=== PATIENT | female | born 1985 | race Caucasian/White ===

== ENCOUNTER 2022-07-07 08:23 | Observation (INO) ==
[2022-07-07] MEDS ORDERED: SODIUM CHLORIDE 0.9% 1000ML 1,000 ML IV STA (08:32)
[2022-07-07] MEDS ORDERED: ONDANSETRON INJ 2 MG/ML 2 ML VIAL IV STA (08:32)
[2022-07-07] MEDS ORDERED: KETOROLAC TROMETHAMINE 15 MG/ML VIAL IV STA (08:32)
--- NOTE | 2022-07-07 08:57 | Emergency Department Note ---
Impression & Plan RLQ abdominal pain, Vomiting and diarrhea, Appendicitis ED Provider Note NAME: FELY DEUTSCH AGE: 37 SEX: F : 1985 ARRIVES VIA: Walk-In INFORMANT: [Patient] ED PROVIDER(S): [Pradeep Caballero MD] CHIEF COMPLAINT: Abdominal pain HISTORY OF PRESENT ILLNESS: The patient is a 37-year-old female who presents to the ER with symptoms that started 2 days ago. She has had nausea, fatigue, body aches and sweats. She has noticed some right-sided abdominal pain. This morning, she began vomiting with diarrhea. The pain on the right side has increased. She has not had blood in the vomit or diarrhea. The patient's son was sick with vomiting diarrhea last week. The patient does not believe she has eaten any food that may have caused her symptoms. There has been no cough or congestion, no respiratory symptoms, no urinary symptoms PMHx/PSHx: See Below SOCIAL HISTORY: See Below. PHYSICAL EXAM: GENERAL: Patient is in no acute distress. HEENT: No acute trauma, normocephalic atraumatic, mucous membranes dry, no nasal congestion. NECK: No stridor, no adenopathy, no meningismus, trachea is midline. LUNGS: Clear to auscultation bilaterally, no wheeze, no rhonchi, breath sounds equal. HEART: Without murmurs gallops or rubs, regular rate and rhythm. ABDOMEN: Soft, significantly tender in the right lower quadrant. Pain is present on the right with palpation on the left. No distention. EXTREMITIES: No cyanosis or edema, full range of motion of all the joints without pain or difficulty, no signs for acute trauma. NEUROLOGIC: Oriented x 3, no acute motor or sensory deficits, no focal weakness. SKIN: No rash, no jaundice, no diaphoresis. DIFFERENTIAL DIAGNOSIS: Diverticulitis, appendicitis, dehydration, electrolyte imbalance, viral illness, foodborne illness, UTI, among others. EMERGENCY DEPARTMENT COURSE/PROCEDURES: Prior/Outside records reviewed: None MEDICAL DECISION MAKING: There is no leukocytosis or concerning anemia. There is a normal platelet count. No renal failure or significant electrolyte abnormality. No concerning liver enzyme elevation. test was negative. No evidence for pancreatitis. Urinalysis shows some dehydration, no obvious infection. Respiratory bio fire was completely negative. Abdominal and pelvis CT shows acute appendicitis without perforation. On exam, the patient was quite tender in the right lower quadrant. The patient received IV Toradol for pain, she was given IV saline, IV Zofran. She received IV Tylenol. The patient presents with vomiting diarrhea. She was quite tender in the right lower quadrant as noted above. Imaging does suggest acute appendicitis. The patient is being seen by general surgery, I did consult them. I did speak with case management. The patient is aware of her findings. DISPOSITION: Patient's presentation and findings warrant an evaluation by the surgical team. Past Med/Surg History Medical History Anxiety Surgical History (Updated 07/07/22 @ 12:52 by Evelia Perry PA-C) S/P Social History Current Living Situation: Family Allergies Allergies Allergy/AdvReac Type Severity Reaction Status Date / Time No Known Allergies Allergy Verified 07/07/22 13:59 Home Meds Home Medications Medication Instructions Recorded Confirmed levocetirizine 5 mg tablet (Xyzal) 5 mg PO PM 07/07/22 07/07/22 Results & Data (ED) Vital Signs Vital Signs - 24 hr 07/07/22 08:27 07/07/22 11:13 07/07/22 13:36 Temperature 36.8 C Temperature Source Temporal Artery Scan Pulse Rate 104 H Pulse Rate [Apical] Pulse Rate [Right Finger] 86 90 Pulse Rhythm [Apical] Respiratory Rate 18 16 16 Respiratory Effort / Characteristics Respiratory Depth Respiratory Pattern Blood Pressure 110/70 Blood Pressure [Left Arm] Blood Pressure [Right Arm] 102/60 103/52 L Blood Pressure Mean 83 Blood Pressure Mean [Left Arm] Blood Pressure Mean [Right Arm] 74 69 Blood Pressure Position [Left Arm] Pulse Oximetry 97 98 98 Oxygen Delivery Method Room Air Sepsis Recent Fever Within 48 Hours No Sepsis New/Unexplained Change in Mental Status No Sepsis Action Taken by Nursing No Action Required 07/07/22 13:50 Temperature 37 C Temperature Source Oral Pulse Rate Pulse Rate [Apical] 84 Pulse Rate [Right Finger] Pulse Rhythm [Apical] Regular Respiratory Rate 20 Respiratory Effort / Characteristics Non-Labored Spontaneous Normal for Patient Respiratory Depth Normal Respiratory Pattern Regular Blood Pressure Blood Pressure [Left Arm] 111/55 L Blood Pressure [Right Arm] Blood Pressure Mean Blood Pressure Mean [Left Arm] 73 Blood Pressure Mean [Right Arm] Blood Pressure Position [Left Arm] Semi-fowlers Pulse Oximetry 99 Oxygen Delivery Method Room Air Sepsis Recent Fever Within 48 Hours Sepsis New/Unexplained Change in Mental Status Sepsis Action Taken by Skilled Nursing Medications Current Medication List: was personally reviewed by me Laboratory Data Attestation: I reviewed the patient's lab results. 07/07/22 09:01 07/07/22 09:01 Lab Results 07/07/22 07/07/22 07/07/22 Range/Units 09:01 09:01 09:01 WBC 8.29 (4.8-10.8) K/ul RBC 4.48 (4.20-5.40) M/uL Hgb 13.8 (12.0-16.0) g/dl Hct 39.0 (37.0-47.0) % MCV 87.1 (80.0-100.0) fL MCH 30.8 (25.0-34.0) pg MCHC 35.4 (32.0-36.0) g/dL RDW Std Deviation 39.7 (36.4-46.3) fL RDW Coeff of Dede 12.4 (11.5-14.5) % Plt Count 227 (130-400) K/uL MPV 9.3 L (9.4-12.4) fL Immature Gran % (Auto) 0.5 % Neut % (Auto) 87.5 % Lymph % (Auto) 6.6 % Gem % (Auto) 4.6 % Eos % (Auto) 0.4 % Baso % (Auto) 0.4 % Neut # (Auto) 7.26 H (1.40-6.50) K/uL Lymph # (Auto) 0.55 L (1.2-3.4) K/uL Gem # (Auto) 0.38 (0.11-0.59) K/uL Eos # (Auto) 0.03 (0-0.50) K/uL Baso # (Auto) 0.03 (0-0.2) K/uL Immature Gran # (Auto) 0.04 (0.01-0.20) K/uL Sodium 139 (136-145) mmol/L Potassium 3.5 (3.5-5.1) mmol/L Chloride 109 H (98-107) mmol/L Carbon Dioxide 23 (21-32) mmol/L Anion Gap 7 (3-11) BUN 8 (6-23) mg/dl Creatinine 0.69 (0.6-1.2) mg/dl Est Cr Clr Drug Dosing 96.1 ml/min Est GFR ( Amer) 128.0 ml/min Est GFR (Non-Af Amer) 110.4 ml/min BUN/Creatinine Ratio 11.6 (10-20) Glucose 111 H (70-99(Fasting)) mg/dl Calcium 8.4 L (8.6-10.3) mg/dl Total Bilirubin 0.3 (0.2-1.0) mg/dl AST 16 (13-39) U/L ALT 16 (7-52) U/L Alkaline Phosphatase 33 L (34-104) U/L Total Protein 6.3 (6.0-8.3) gm/dl Albumin 4.0 (3.4-5.0) gm/dl Globulin 2.3 L (2.5-4.0) gm/dl Albumin/Globulin Ratio 1.7 (0.9-2) Lipase 19 (11-82) U/L HCG, Qual Negative (Negative) Urine Color Urine Appearance (Clear) Urine pH (4.5-7.5) Ur Specific [place] (1.000-1.030) Urine Protein (Negative) Urine Glucose (UA) (Negative) Urine Ketones (Negative) Urine Blood (Negative) Urine Nitrite (Negative) Urine Bilirubin (Negative) Urine Urobilinogen (Negative) Ur Leukocyte Esterase (Negative) Urine WBC (Auto) (0-5) /hpf Urine RBC (Auto) (0-4) /hpf U Hyaline Cast (Auto) (0-5) /lpf U Epithel Cells (Auto) (0-5) /lpf Urine Bacteria (Auto) (Negative) Adenovirus (PCR) (NotDetected) B. pertussis DNA (PCR) (NotDetected) B.parapertussis DNA PCR (NotDetected) C. pneumoniae DNA (PCR) (NotDetected) Coronavirus OC43 (PCR) (NotDetected) Coronavirus HKU1 (PCR) (NotDetected) Coronavirus 229E (PCR) (NotDetected) SARS-CoV-2 (PCR) (NotDetected) Coronavirus NL63 (PCR) (NotDetected) Human Metapneumovir PCR (NotDetected) Influenza Type A (PCR) (NotDetected) Influenza Type B (PCR) (NotDetected) M. pneumoniae (PCR) (NotDetected) Parainfluenza 1 (PCR) (NotDetected) Parainfluenza 2 (PCR) (NotDetected) Parainfluenza 3 (PCR) (NotDetected) Parainfluenza 4 (PCR) (NotDetected) RSV (PCR) (NotDetected) Entero/Rhino (PCR) (NotDetected) 07/07/22 07/07/22 Range/Units 09:05 13:10 WBC (4.8-10.8) K/ul RBC (4.20-5.40) M/uL Hgb (12.0-16.0) g/dl Hct (37.0-47.0) % MCV (80.0-100.0) fL MCH (25.0-34.0) pg MCHC (32.0-36.0) g/dL RDW Std Deviation (36.4-46.3) fL RDW Coeff of Dede (11.5-14.5) % Plt Count (130-400) K/uL MPV (9.4-12.4) fL Immature Gran % (Auto) % Neut % (Auto) % Lymph % (Auto) % Gem % (Auto) % Eos % (Auto) % Baso % (Auto) % Neut # (Auto) (1.40-6.50) K/uL Lymph # (Auto) (1.2-3.4) K/uL Gem # (Auto) (0.11-0.59) K/uL Eos # (Auto) (0-0.50) K/uL Baso # (Auto) (0-0.2) K/uL Immature Gran # (Auto) (0.01-0.20) K/uL Sodium (136-145) mmol/L Potassium (3.5-5.1) mmol/L Chloride (98-107) mmol/L Carbon Dioxide (21-32) mmol/L Anion Gap (3-11) BUN (6-23) mg/dl Creatinine (0.6-1.2) mg/dl Est Cr Clr Drug Dosing ml/min Est GFR ( Amer) ml/min Est GFR (Non-Af Amer) ml/min BUN/Creatinine Ratio (10-20) Glucose (70-99(Fasting)) mg/dl Calcium (8.6-10.3) mg/dl Total Bilirubin (0.2-1.0) mg/dl AST (13-39) U/L ALT (7-52) U/L Alkaline Phosphatase (34-104) U/L Total Protein (6.0-8.3) gm/dl Albumin (3.4-5.0) gm/dl Globulin (2.5-4.0) gm/dl Albumin/Globulin Ratio (0.9-2) Lipase (11-82) U/L HCG, Qual (Negative) Urine Color Yellow Urine Appearance Clear (Clear) Urine pH 5.5 (4.5-7.5) Ur Specific [place] > 1.045 H (1.000-1.030) Urine Protein 1+ H (Negative) Urine Glucose (UA) Negative (Negative) Urine Ketones 3+ H (Negative) Urine Blood Negative (Negative) Urine Nitrite Negative (Negative) Urine Bilirubin Negative (Negative) Urine Urobilinogen Negative (Negative) Ur Leukocyte Esterase Negative (Negative) Urine WBC (Auto) 1-5 (0-5) /hpf Urine RBC (Auto) >30 H (0-4) /hpf U Hyaline Cast (Auto) 0 (0-5) /lpf U Epithel Cells (Auto) >30 H (0-5) /lpf Urine Bacteria (Auto) Negative (Negative) Adenovirus (PCR) Not Detected (NotDetected) B. pertussis DNA (PCR) Not Detected (NotDetected) B.parapertussis DNA PCR Not Detected (NotDetected) C. pneumoniae DNA (PCR) Not Detected (NotDetected) Coronavirus OC43 (PCR) Not Detected (NotDetected) Coronavirus HKU1 (PCR) Not Detected (NotDetected) Coronavirus 229E (PCR) Not Detected (NotDetected) SARS-CoV-2 (PCR) Not Detected (NotDetected) Coronavirus NL63 (PCR) Not Detected (NotDetected) Human Metapneumovir PCR Not Detected (NotDetected) Influenza Type A (PCR) Not Detected (NotDetected) Influenza Type B (PCR) Not Detected (NotDetected) M. pneumoniae (PCR) Not Detected (NotDetected) Parainfluenza 1 (PCR) Not Detected (NotDetected) Parainfluenza 2 (PCR) Not Detected (NotDetected) Parainfluenza 3 (PCR) Not Detected (NotDetected) Parainfluenza 4 (PCR) Not Detected (NotDetected) RSV (PCR) Not Detected (NotDetected) Entero/Rhino (PCR) Not Detected (NotDetected) Administered Medications Discontinued Medications Acetaminophen (Acetaminophen 1000 Mg/100 Ml Iv) Confirm Administered Dose 1,000 mg IV .STK-MED ONE Stop: 07/07/22 14:04 Last Admin: 07/07/22 14:09 Dose: 1,000 mg Documented By: HBChristophe Acetaminophen (Acetaminophen 1000 Mg/100 Ml Iv) 1,000 mg IV NOW STA Stop: 07/07/22 14:23 Last Admin: 07/07/22 14:29 Dose: Not Given Documented By: HBChristophe Bupivacaine HCl/Epinephrine Bitart (Bupivacaine/Epinephrine 0.5% Mpf 1:200,000 30 Ml Vial) Confirm Administered Dose 30 ml .ROUTE .STK-MED ONE Stop: 07/07/22 13:20 Last Admin: 07/07/22 15:35 Dose: 30 ml Documented By: KARLEE Sodium Chloride (Nss 1000ml) 1,000 mls @ 999 mls/hr IV .Q1H1M STA Stop: 07/07/22 09:32 Last Infusion: 07/07/22 11:15 Dose: 0 mls/hr Documented By: Admin: 07/07/22 08:58 Dose: 999 mls/hr Documented By: MT Cefoxitin Sodium (Mefoxin) 2,000 mg in 60 mls @ 100 mls/hr IV NOW STA Stop: 07/07/22 14:18 Last Admin: 07/07/22 14:37 Dose: 100 mls/hr Documented By: HBM Ioversol (Optiray 350 100ml) 94 ml IV ONCE ONE Stop: 07/07/22 10:19 Last Admin: 07/07/22 10:19 Dose: 94 ml Documented By: LUZ Ketorolac Tromethamine (Ketorolac Tromethamine 15 Mg/Ml Vial) 15 mg IV NOW STA Stop: 07/07/22 08:33 Last Admin: 07/07/22 08:59 Dose: 15 mg Documented By: TATYANA Ondansetron HCl (Ondansetron Inj 2 Mg/Ml 2 Ml Vial) 4 mg IV NOW STA Stop: 07/07/22 08:33 Last Admin: 07/07/22 08:58 Dose: 4 mg Documented By: TATYANA Imaging Data Radiologist's Impression: Abdomen/Pelvis CT 07/07/22 08:32 CT OF THE ABDOMEN AND PELVIS WITH CONTRAST CLINICAL HISTORY: Right-sided abdominal pain. COMPARISON STUDY: None. TECHNIQUE: Following IV administration of 94 mL of Optiray, axial images of the abdomen and pelvis were obtained from the lung bases to the proximal femurs. Images were reviewed in the axial, sagittal, and coronal planes. IV contrast was administered without complication. Automated exposure control was utilized for the study. A dose lowering technique was utilized adhering to the principles of ALARA. CT DOSE: 311.42 mGy.cm FINDINGS: There are trace bilateral pleural effusions. No pneumatosis, free air or portal venous gas is present. The liver, spleen, adrenal glands, kidneys and pancreas are unremarkable. There is no biliary or pancreatic ductal dilatation. No hydronephrosis. There is no evidence for a bowel obstruction. An appendicolith within the base of the appendix is noted. The appendix is mildly dilated, measuring 8 mm in caliber. There is mild wall thickening with mild periappendiceal inflammation. No free air or abscess is present. There is a possible septate uterus, suboptimally assessed by CT. Major vasculature is patent. No lymphadenopathy. Prominent mesenteric lymph nodes are probably benign. Major vasculature is patent. Corpus luteal cyst within the right ovary is present. IMPRESSION: 1. Findings consistent with acute appendicitis. No extraluminal gas. No abscess. 2. Possible septate uterus, suboptimally assessed by CT. ACT 112: Negative or not required by law. Electronically signed by: Wilber Rajput M.D. 07/07/2022 11:07 AM Discharge Plan Visit Data Chief Complaint: Abdominal Pain Stated Complaint: ABDOMINAL PAIN ED Provider: Pradeep Caballero Discharge Problem: RLQ abdominal pain, Vomiting and diarrhea, Appendicitis Patient Disposition: Admitted As Inpatient Condition: Fair Discharge Instructions Interventions: ED Discharge Assessment Last Done: 07/07/22 13:36
[2022-07-07 09:31] LABS: Basophils # (auto) 0.03 K/uL (0-0.2); Basophils % (auto) 0.4 %; Eosinophils # (auto) 0.03 K/uL (0-0.50); Eosinophils % (auto) 0.4 %; Hemoglobin 13.8 g/dl (12.0-16.0); Immature Granulocytes # (auto) 0.04 K/uL (0.01-0.20); Immature Granulocytes % (auto) 0.5 %; Lymphocytes # (auto) 0.55 K/uL (1.2-3.4); Lymphocytes % (auto) 6.6 %; Mean Corpuscular Hemoglobin 30.8 pg (25.0-34.0); Mean Corpuscular Hgb Conc 35.4 g/dL (32.0-36.0); Mean Corpuscular Volume 87.1 fL (80.0-100.0); Mean Platelet Volume 9.3 fL (9.4-12.4); Monocytes # (auto) 0.38 K/uL (0.11-0.59); Monocytes % (auto) 4.6 %; Neutrophils # (auto) 7.26 K/uL (1.40-6.50); Neutrophils % (auto) 87.5 %; Platelet Count 227 K/uL (130-400); RDW Coefficient of Variation 12.4 % (11.5-14.5); RDW Standard Deviation 39.7 fL (36.4-46.3); Red Blood Count 4.48 M/uL (4.20-5.40); White Blood Count 8.29 K/ul (4.8-10.8)
[2022-07-07 09:45] LABS: Albumin Globulin Ratio 1.7 (0.9-2); BUN Creatinine Ratio 11.6 (10-20); Bilirubin,Total 0.3 mg/dl (0.2-1.0); Calcium 8.4 mg/dl (8.6-10.3); Creatinine Clr Calc Pharmacy 96.1 ml/min; Est GFR (Non-African American) 110.4 ml/min; Globulin 2.3 gm/dl (2.5-4.0); Potassium 3.5 mmol/L (3.5-5.1); Total Protein 6.3 gm/dl (6.0-8.3)
[2022-07-07 09:56] LABS: Pregnancy Test, Serum Negative (Negative)
[2022-07-07] MEDS ORDERED: OPTIRAY 350 100ml IV ONE (10:18)
[2022-07-07 10:23] LABS: Adenovirus PCR Not Detected (NotDetected); Bordetella parapertussis PCR Not Detected (NotDetected); Bordetella pertussis PCR Not Detected (NotDetected); Chlamydia pneumoniae PCR Not Detected (NotDetected); Coronavirus 229E PCR Not Detected (NotDetected); Coronavirus CoV-2 (COVID19)PCR Not Detected (NotDetected); Coronavirus HKU1 PCR Not Detected (NotDetected); Coronavirus NL63 PCR Not Detected (NotDetected); Coronavirus OC43PCR Not Detected (NotDetected); Human Metapneumovirus PCR Not Detected (NotDetected); Influenza A PCR Not Detected (NotDetected); Influenza B PCR Not Detected (NotDetected); Mycoplasma pneumoniae PCR Not Detected (NotDetected); Parainfluenza Virus 1 PCR Not Detected (NotDetected); Parainfluenza Virus 2 PCR Not Detected (NotDetected); Parainfluenza Virus 3 PCR Not Detected (NotDetected); Parainfluenza Virus 4 PCR Not Detected (NotDetected); Respiratory Syncytial VirusPCR Not Detected (NotDetected); Rhinovirus/Enterovirus PCR Not Detected (NotDetected)
--- NOTE | 2022-07-07 11:09 | CT Scan Report ---
CT OF THE ABDOMEN AND PELVIS WITH CONTRAST CLINICAL HISTORY: Right-sided abdominal pain. COMPARISON STUDY: None. TECHNIQUE: Following IV administration of 94 mL of Optiray, axial images of the abdomen and pelvis we re obtained from the lung bases to the proximal femurs. Images were reviewed in the axial, sagittal, and coronal planes. IV contrast was administered without complication. Automated exposure control wa s utilized for the study. A dose lowering technique was utilized adhering to the principles of ALARA . CT DOSE: 311.42 mGy.cm FINDINGS: There are trace bilateral pleural effusions. No pneumatosis, free air or portal venous gas is present. The liver, spleen, adrenal glands, kidneys and pancreas are unremarkable. There is no devang iary or pancreatic ductal dilatation. No hydronephrosis. There is no evidence for a bowel obstruction . An appendicolith within the base of the appendix is noted. The appendix is mildly dilated, measurin g 8 mm in caliber. There is mild wall thickening with mild periappendiceal inflammation. No free air or abscess is present. There is a possible septate uterus, suboptimally assessed by CT. Major vascula ture is patent. No lymphadenopathy. Prominent mesenteric lymph nodes are probably benign. Major vascu lature is patent. Corpus luteal cyst within the right ovary is present. IMPRESSION: 1. Findings consistent with acute appendicitis. No extraluminal gas. No abscess. 2. Possible septate uterus, suboptimally assessed by CT. ACT 112: Negative or not required by law. Electronically signed by: Wilber Rajput M.D. 07/07/2022 11:07 AM
--- NOTE | 2022-07-07 12:45 | Anesthesiology Consultation ---
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 Surgery Operation Date: 07/07/22 10:30 Proposed Procedures p Laparoscopic Appendectomy - Noe Torre MD Height/Weight Height: 5 ft 1 in Weight: 66 kg Allergies Allergy/AdvReac Type Severity Reaction Status Date / Time No Known Allergies Allergy Unverified 07/07/22 12:04 Medications Home Medications Medication Instructions Recorded Confirmed Last Taken levocetirizine 5 mg tablet (Xyzal) 5 mg PO PM 07/07/22 07/07/22 07/06/22 Physical Exam Vital Signs Last Vital Signs Temp 98.2 F 07/07/22 08:27 Pulse 86 07/07/22 11:13 Resp 16 07/07/22 11:13 BP 102/60 07/07/22 11:13 Pulse Ox 98 07/07/22 11:13 O2 Del Method Room Air 07/07/22 08:27 Testing Laboratory Results 07/07/22 09:01 07/07/22 09:01
[2022-07-07] MEDS ORDERED: ONDANSETRON INJ 2 MG/ML 2 ML VIAL ONE (12:51)
[2022-07-07] MEDS ORDERED: NEOSTIGMINE METHYLSULFATE 1 MG/ML 10ML VIAL ONE (12:51)
[2022-07-07] MEDS ORDERED: LIDOCAINE 2% 2 ML VIAL/AMP(20MG/ML) INFIL ONE (12:51)
[2022-07-07] MEDS ORDERED: fentaNYL citrate PF 100 MCG/2 ML VIAL ONE (12:51)
[2022-07-07] MEDS ORDERED: GLYCOPYRROLATE 0.2 MG/ML VIAL ONE (12:51)
[2022-07-07] MEDS ORDERED: PROPOFOL IV EMULSION 10 MG/ML 20 ML VIAL IV ONE (12:51)
[2022-07-07] MEDS ORDERED: MIDAZOLAM HCL 1 MG/ML 2ML VIAL ONE (12:51)
[2022-07-07] MEDS ORDERED: DEXAMETHASONE SOD INJ 4 MG/ML VIAL ONE (12:51)
[2022-07-07] MEDS ORDERED: LARYING-O-JET KIT (LTA) ONE (12:52)
[2022-07-07] MEDS ORDERED: ROCURONIUM BROMIDE 10 MG/ML 5 ML VIAL IV ONE (12:52)
--- NOTE | 2022-07-07 12:56 | History & Physical Report ---
Date of Service July 07, 2022 Assessment & Plan (1) Acute appendicitis: Plan: 37 year-old female with 3 day history of generally not feeling well with chills, sweats, and fatigue and 1 day history of abdominal pain and diarrhea with CT scan consistent with appendicitis and appendicolith. Afebrile. No signs of abscess or rupture. normal wbc. Discussed with patient and her imaging findings consistent with appendicitis. Discussed indication for surgery , risks of procedure and expected recovery time. Will obtain consent preop with Dr. Torre. Will plan to take to operating room today for laparoscopic appendectomy at earliest convenience. Discussed with Dr. Torre who will see patient preoperatively and obtained consent. History of Present Illness Chief Complaint: abdominal pain Primary Care Provider: Jojo Ozuna PA-C Daphne is a 37 year-old female with history of anxiety who presented to emergency room with complaint of abdominal pain that started in middle of night in setting of not feeling well starting Thursday with aches, chills, sweats, and low grade fever. Diarrhea started this am x 2. No blood in stools. States she had mid upper and right lower abdominal pain. No history of similar pain. States son had stomach bug last week with vomiting and diarrhea. CT scan showing dilated appendix at 8 mm with periappendiceal stranding and fecalith. Normal wbc, afebrile here. History of 9.5 years ago. Pain minimal at this time after pain medication. No nausea or vomiting. Allergies Allergy/AdvReac Type Severity Reaction Status Date / Time No Known Allergies Allergy Verified 07/07/22 13:59 Home Medications Medication Instructions Recorded Confirmed Type levocetirizine 5 mg tablet (Xyzal) 5 mg PO PM 07/07/22 07/07/22 History Past Med/Surg History Medical History (Updated 07/07/22 @ 12:52 by Evelia Perry PA-C) Anxiety Surgical History (Updated 07/07/22 @ 12:52 by Evelia Perry PA-C) S/P Review of Systems Review of Systems: All systems reviewed & are unremarkable except as noted in HPI & below Physical Exam Constitutional: WD/WN, vitals as above cooperative and comfortable; no acute distress and not ill appearing Neck: normal visual inspection and trachea midline Respiratory: normal respiratory effort, lungs clear to auscultation Cardiovascular: RRR, no murmur, no edema Gastrointestinal (Abdomen): Inspection/Auscultation: abdomen normal to inspection; abdomen not distended Percussion/Palpation: + abdomen tender (RLQ on deep palpation) and abdomen soft; no guarding and abdomen not rigid Skin: no rashes, warm and dry Psychiatric: Orientation: alert and oriented x 3 Affect: + anxious affect Results & Data Results & Data Vital Signs (Past 12 Hours) Vital Signs Temp Pulse Pulse Resp BP BP Pulse Ox 07/07/22 11:13 86 16 102/60 98 07/07/22 08:27 36.8 C 104 H 18 110/70 97 O2 Del Method 07/07/22 11:13 07/07/22 08:27 Room Air Laboratory Results 07/07/22 07/07/22 07/07/22 Range/Units 09:05 09:01 09:01 WBC (4.8-10.8) K/ul RBC (4.20-5.40) M/uL Hgb (12.0-16.0) g/dl Hct (37.0-47.0) % MCV (80.0-100.0) fL MCH (25.0-34.0) pg MCHC (32.0-36.0) g/dL RDW Std Deviation (36.4-46.3) fL RDW Coeff of Dede (11.5-14.5) % Plt Count (130-400) K/uL MPV (9.4-12.4) fL Immature Gran % (Auto) % Neut % (Auto) % Lymph % (Auto) % Buchanan % (Auto) % Eos % (Auto) % Baso % (Auto) % Neut # (Auto) (1.40-6.50) K/uL Lymph # (Auto) (1.2-3.4) K/uL Buchanan # (Auto) (0.11-0.59) K/uL Eos # (Auto) (0-0.50) K/uL Baso # (Auto) (0-0.2) K/uL Immature Gran # (Auto) (0.01-0.20) K/uL Sodium 139 (136-145) mmol/L Potassium 3.5 (3.5-5.1) mmol/L Chloride 109 H (98-107) mmol/L Carbon Dioxide 23 (21-32) mmol/L Anion Gap 7 (3-11) BUN 8 (6-23) mg/dl Creatinine 0.69 (0.6-1.2) mg/dl Est Cr Clr Drug Dosing 96.1 ml/min Est GFR ( Amer) 128.0 ml/min Est GFR (Non-Af Amer) 110.4 ml/min BUN/Creatinine Ratio 11.6 (10-20) Glucose 111 H (70-99(Fasting)) mg/dl Calcium 8.4 L (8.6-10.3) mg/dl Total Bilirubin 0.3 (0.2-1.0) mg/dl AST 16 (13-39) U/L ALT 16 (7-52) U/L Alkaline Phosphatase 33 L (34-104) U/L Total Protein 6.3 (6.0-8.3) gm/dl Albumin 4.0 (3.4-5.0) gm/dl Globulin 2.3 L (2.5-4.0) gm/dl Albumin/Globulin Ratio 1.7 (0.9-2) Lipase 19 (11-82) U/L HCG, Qual Negative (Negative) Adenovirus (PCR) Not Detected (NotDetected) B. pertussis DNA (PCR) Not Detected (NotDetected) B.parapertussis DNA PCR Not Detected (NotDetected) C. pneumoniae DNA (PCR) Not Detected (NotDetected) Coronavirus OC43 (PCR) Not Detected (NotDetected) Coronavirus HKU1 (PCR) Not Detected (NotDetected) Coronavirus 229E (PCR) Not Detected (NotDetected) SARS-CoV-2 (PCR) Not Detected (NotDetected) Coronavirus NL63 (PCR) Not Detected (NotDetected) Human Metapneumovir PCR Not Detected (NotDetected) Influenza Type A (PCR) Not Detected (NotDetected) Influenza Type B (PCR) Not Detected (NotDetected) M. pneumoniae (PCR) Not Detected (NotDetected) Parainfluenza 1 (PCR) Not Detected (NotDetected) Parainfluenza 2 (PCR) Not Detected (NotDetected) Parainfluenza 3 (PCR) Not Detected (NotDetected) Parainfluenza 4 (PCR) Not Detected (NotDetected) RSV (PCR) Not Detected (NotDetected) Entero/Rhino (PCR) Not Detected (NotDetected) 07/07/22 Range/Units 09:01 WBC 8.29 (4.8-10.8) K/ul RBC 4.48 (4.20-5.40) M/uL Hgb 13.8 (12.0-16.0) g/dl Hct 39.0 (37.0-47.0) % MCV 87.1 (80.0-100.0) fL MCH 30.8 (25.0-34.0) pg MCHC 35.4 (32.0-36.0) g/dL RDW Std Deviation 39.7 (36.4-46.3) fL RDW Coeff of Dede 12.4 (11.5-14.5) % Plt Count 227 (130-400) K/uL MPV 9.3 L (9.4-12.4) fL Immature Gran % (Auto) 0.5 % Neut % (Auto) 87.5 % Lymph % (Auto) 6.6 % Buchanan % (Auto) 4.6 % Eos % (Auto) 0.4 % Baso % (Auto) 0.4 % Neut # (Auto) 7.26 H (1.40-6.50) K/uL Lymph # (Auto) 0.55 L (1.2-3.4) K/uL Buchanan # (Auto) 0.38 (0.11-0.59) K/uL Eos # (Auto) 0.03 (0-0.50) K/uL Baso # (Auto) 0.03 (0-0.2) K/uL Immature Gran # (Auto) 0.04 (0.01-0.20) K/uL Sodium (136-145) mmol/L Potassium (3.5-5.1) mmol/L Chloride (98-107) mmol/L Carbon Dioxide (21-32) mmol/L Anion Gap (3-11) BUN (6-23) mg/dl Creatinine (0.6-1.2) mg/dl Est Cr Clr Drug Dosing ml/min Est GFR ( Amer) ml/min Est GFR (Non-Af Amer) ml/min BUN/Creatinine Ratio (10-20) Glucose (70-99(Fasting)) mg/dl Calcium (8.6-10.3) mg/dl Total Bilirubin (0.2-1.0) mg/dl AST (13-39) U/L ALT (7-52) U/L Alkaline Phosphatase (34-104) U/L Total Protein (6.0-8.3) gm/dl Albumin (3.4-5.0) gm/dl Globulin (2.5-4.0) gm/dl Albumin/Globulin Ratio (0.9-2) Lipase (11-82) U/L HCG, Qual (Negative) Adenovirus (PCR) (NotDetected) B. pertussis DNA (PCR) (NotDetected) B.parapertussis DNA PCR (NotDetected) C. pneumoniae DNA (PCR) (NotDetected) Coronavirus OC43 (PCR) (NotDetected) Coronavirus HKU1 (PCR) (NotDetected) Coronavirus 229E (PCR) (NotDetected) SARS-CoV-2 (PCR) (NotDetected) Coronavirus NL63 (PCR) (NotDetected) Human Metapneumovir PCR (NotDetected) Influenza Type A (PCR) (NotDetected) Influenza Type B (PCR) (NotDetected) M. pneumoniae (PCR) (NotDetected) Parainfluenza 1 (PCR) (NotDetected) Parainfluenza 2 (PCR) (NotDetected) Parainfluenza 3 (PCR) (NotDetected) Parainfluenza 4 (PCR) (NotDetected) RSV (PCR) (NotDetected) Entero/Rhino (PCR) (NotDetected) Diagnostic Findings CT OF THE ABDOMEN AND PELVIS WITH CONTRAST CLINICAL HISTORY: Right-sided abdominal pain. COMPARISON STUDY: None. TECHNIQUE: Following IV administration of 94 mL of Optiray, axial images of the abdomen and pelvis were obtained from the lung bases to the proximal femurs. Images were reviewed in the axial, sagittal, and coronal planes. IV contrast was administered without complication. Automated exposure control was utilized for the study. A dose lowering technique was utilized adhering to the principles of ALARA. CT DOSE: 311.42 mGy.cm FINDINGS: There are trace bilateral pleural effusions. No pneumatosis, free air or portal venous gas is present. The liver, spleen, adrenal glands, kidneys and pancreas are unremarkable. There is no biliary or pancreatic ductal dilatation. No hydronephrosis. There is no evidence for a bowel obstruction. An a ppendicolith within the base of the appendix is noted. The appendix is mildly dilated, measuring 8 mm in caliber. There is mild wall thickening with mild periappendiceal inflammation. No free air or abscess is present. There is a possible septate uterus, suboptimally assessed by CT. Major vasculature is patent. No lymphadenopathy. Prominent mesenteric lymph nodes are probably benign. Major vasculature is patent. Corpus luteal cyst within the right ovary is present. IMPRESSION: 1. Findings consistent with acute appendicitis. No extraluminal gas. No abscess. 2. Possible septate uterus, suboptimally assessed by CT. Code Status & VTE Plan VTE Prophylaxis Plan VTE Prophylaxis will be ordered: Yes Supervising Physician Co-Signing Physician Notes I have seen and examined the patient agree with above assessment and plan. In brief she has acute appendicitis. We discussed the risks and benefits of laparoscopic appendectomy. All questions were answered, she is agreeable to proceed. We will take her to the operating room at the earliest convenience. Consent has been obtained.
[2022-07-07] MEDS ORDERED: BUPIVACAINE/EPINEPHRINE 0.5% MPF 1:200,000 30 ML VIAL ONE (13:19)
[2022-07-07] MEDS ORDERED: MoRPHine SULFATE 2 MG/ML CARP IV PRN ×2 (13:35→17:36)
[2022-07-07] MEDS ORDERED: ONDANSETRON INJ 2 MG/ML 2 ML VIAL IV PRN ×3 (13:35→17:36)
[2022-07-07] MEDS ORDERED: MoRPHine SULFATE 4 MG/ML 1 ML CARP\\VIAL IV PRN (13:35)
[2022-07-07] MEDS ORDERED: cefOXitin 2,000 MG/60 ML BAG IV STA (13:43)
[2022-07-07 13:44] LABS: Appearance Urine Clear (Clear); Bacteria Urine Automated Negative (Negative); Bilirubin Urine Negative (Negative); Blood Urine Negative (Negative); Color Urine Yellow; Epithelial Cell Urine Auto >30 /lpf (0-5); Glucose Urine UA Negative (Negative); Ketones Urine 3+ (Negative); Leukocyte Esterase Urine Negative (Negative); Nitrite Urine Negative (Negative); Protein Urine 1+ (Negative); RBC Urine Automated >30 /hpf (0-4); Specific Gravity Urine > 1.045 (1.000-1.030); Urobilinogen Urine Negative (Negative); pH Urine 5.5 (4.5-7.5)
[2022-07-07] MEDS ORDERED: ATROPINE SULFATE 0.1 MG/ML 10ML SYR IV PRN (13:53)
[2022-07-07] MEDS ORDERED: fentaNYL citrate PF 100 MCG/2 ML VIAL IV PRN (13:53)
[2022-07-07] MEDS ORDERED: ePHEDrine sulfate 50 MG/ML AMP IV PRN (13:53)
[2022-07-07] MEDS ORDERED: ACETAMINOPHEN 1000 MG/100 ML IV IV ONE (14:03)
[2022-07-07 14:12] LABS: Cast Urine Automated 0 /lpf (0-5)
[2022-07-07] MEDS ORDERED: ACETAMINOPHEN 1000 MG/100 ML IV IV STA (14:22)
[2022-07-07] MEDS ORDERED: SUGAMMADEX SODIUM 200 MG/2 ML VIAL IV ONE (15:32)
[2022-07-07] MEDS ORDERED: KETOROLAC 30 MG/ML VIAL ONE (15:37)
--- NOTE | 2022-07-07 15:42 | Post Operative Brief Note ---
Immediate Post Op Note v1 Date of Surgery July 07, 2022 Pre & Post Diagnosis Operation Date: 07/07/22 10:30 Preop diagnosis: Acute appendicitis Postoperative diagnosis: Same I identified the patient and participated in the time-out.: Yes Procedure Operation Date: 07/07/22 10:30 Procedure: Laparoscopic appendectomy Surgeon Noe Torre MD [employer] None Estimated Blood Loss 5 Findings Consistent with Post-Op Diagnosis
--- NOTE | 2022-07-07 15:43 | Operative Report ---
Post Operative Report Pre & Post Diagnosis Operation Date: 07/07/22 10:30 <No data on this case meets the specified criteria> I identified the patient and participated in the time-out.: Yes Procedure Operation Date: 07/07/22 10:30 <No data on this case meets the specified criteria> Surgeon Noe Torre MD Director Digital Advertising None Estimated Blood Loss 5 Findings Consistent with Post-Op Diagnosis Acute appendicitis without perforation Specimens Appendix Drains None Anesthesia Type General Complications No immediate complications Description of Procedure The patient was taken to the operating room, and placed supine on the operating table. A timeout was performed, perioperative antibiotics were administered, SCD boots were placed. After adequate anesthesia and analgesia was obtained, the abdomen was prepped and draped in the normal sterile fashion. A 1 cm incision was made in the supraumbilical region and carried down to the level of the fascia. A trach hook was used to grasp the fascia and elevated and a varies needle was used to enter the abdominal cavity. The abdomen was insufflated to a pressure of 15 mmHg, and a 5 mm trocar was placed in this location. A 5 mm 30 degree laparoscope was placed into the abdominal cavity, and the abdomen was surveyed. The patient was placed in Trendelenburg and slightly to the left. One 5 mm trocar was placed in the right upper quadrant, and one 12 mm trocar was placed in the left lower quadrant under direct visualization. The right colon was identified and traced down to the cecum. The appendix was identified and elevated anteriorly and medially. A window was created at the base of the appendix with a [place] dissector. The Endo NOELLE stapler was used to transect the appendix at its base through noninflamed tissue, and subsequently the mesoappendix. The appendix was placed in an Endo Catch bag, and removed via the left lower quadrant port site. Attention was turned to hemostasis, which was excellent. The abdomen was copiously irrigated and suctioned free, and again hemostasis was found to be excellent. All trochars removed under direct visualization. The abdomen was desufflated. The fascia in the 12 mm port site was closed with a 0 Vicryl suture. The skin was closed with a running 4-0 Monocryl subcuticular stitch. Dermabond was applied. The patient tolerated the procedure without complication, and was transferred in stable condition to the PACU. All instrument, needle, and sponge counts were correct at the end of the case. I attest to the content of the Intraoperative Record and any orders documented therein. Any exceptions are noted below.
[2022-07-07] MEDS ORDERED: diphenhydrAMINE Capsule 25 MG CAP PO PRN (17:36)
[2022-07-07] MEDS ORDERED: KETOROLAC 30 MG/ML VIAL IV PRN (17:36)
[2022-07-07] MEDS ORDERED: oxyCODONE/ACETAMINOPHEN 5mg/325mg TAB PO PRN (17:36)
--- NOTE | 2022-07-07 17:58 | Anesthesiology Progress Note ---
Date of Service July 07, 2022 Anesthesia Post Procedure Vital Signs Vital Signs: Temp Pulse Pulse Pulse Resp BP BP 07/07/22 17:00 69 15 100/49 L 07/07/22 16:45 76 17 109/47 L 07/07/22 16:30 37.0 C 73 14 111/46 L 07/07/22 16:20 80 16 115/47 L 07/07/22 16:10 79 17 112/45 L 07/07/22 16:00 79 20 117/43 L 07/07/22 15:50 87 18 105/50 L 07/07/22 15:45 36.3 C L 91 H 14 108/43 L 07/07/22 13:50 37 C 84 20 111/55 L 07/07/22 13:36 90 16 07/07/22 11:13 86 16 07/07/22 08:27 36.8 C 104 H 18 110/70 BP Pulse Ox O2 Del Method O2 Flow Rate 07/07/22 17:00 97 Room Air 07/07/22 16:45 97 Room Air 07/07/22 16:30 99 Room Air 07/07/22 16:20 97 Room Air 07/07/22 16:10 97 Room Air 07/07/22 16:00 100 Oxymask 3 07/07/22 15:50 100 Oxymask 6 07/07/22 15:45 100 Oxymask 6 07/07/22 13:50 99 Room Air 07/07/22 13:36 103/52 L 98 07/07/22 11:13 102/60 98 07/07/22 08:27 97 Room Air Pain Intensity Right Abdomen: Pain Intensity: 5 Abdomen: Pain Intensity: 2 Transfer of Care Handoff Completed per policy Notes Mental Status: alert / awake / arousable Patient Amnestic to Procedure: Yes Nausea / Vomiting: adequately controlled Pain: adequately controlled Airway Patency, RR, SpO2: stable & adequate BP & HR: stable & adequate Hydration State: stable & adequate Anesthetic Complications: no major complications apparent and Pt Satisfied with anesthetic care
[2022-07-08] MEDS ORDERED: ENOXAPARIN INJ 40 MG/0.4 ML SYR SQ SCH (08:00)
--- NOTE | 2022-07-08 09:41 | Discharge Summary ---
Date of Service July 08, 2022 Admission HPI Per Admitting Provider Daphne is a 37 year-old female with history of anxiety who presented to emergency room with complaint of abdominal pain that started in middle of night in setting of not feeling well starting Thursday with aches, chills, sweats, and low grade fever. Diarrhea started this am x 2. No blood in stools. States she had mid upper and right lower abdominal pain. No history of similar pain. States son had stomach bug last week with vomiting and diarrhea. CT scan showing dilated appendix at 8 mm with periappendiceal stranding and fecalith. Normal wbc, afebrile here. History of 9.5 years ago. Pain minimal at this time after pain medication. No nausea or vomiting. Principal Diagnosis Acute appendicitis Discharge Exam Constitutional WD/WN, vitals as above no acute distress and not ill appearing Respiratory normal respiratory effort; no respiratory distress Gastrointestinal (Abdomen) Inspection/Auscultation: abdomen normal to inspection, + abdominal surgical incision (clean/dry/intact with dermabond) and + hypoactive bowel sounds; abdomen not distended and + abnormal bowel sounds Percussion/Palpation: + abdomen tender (very mild at incision sites) and abdomen soft; no guarding and abdomen not rigid Skin no rashes, warm and dry Psychiatric A+Ox3, euthymic affect Discharge Data Allergies Allergy/AdvReac Type Severity Reaction Status Date / Time No Known Allergies Allergy Verified 07/07/22 13:59 Consultations 07/07/22 11:20 Consult General Surgery Stat Procedures Performed Operation Date: 07/07/22 10:30 Actual Procedures p Laparoscopic Appendectomy - Noe Torre MD Ordered Studies 07/07/22 08:32 CT abd pelvis IV con only Stat Hospital Course (1) Acute appendicitis: Patient taken to operating room from emergency department for laparoscopic appendectomy on 07/08/[address] Torre. Patient found to have acute appendicitis without perforation or abscess. Patient tolerated procedure and was transferred to recovery then to medical/surgical floor for postop care. Diet advanced to clear liquids, pain management and antiemetics as needed, activity as tolerated. POD # 1 patient feeling well, afebrile, vss, minimal postop pain controlled with Toradol. Ambulated hallway and urinated without difficulty. Patient was discharged home on POD # 1 in stable condition. Total Time Total Time Spent Total Time Spent (In Minutes): 20 minutes Total Time Includes: Examination of the Patient, Discharge Planning and Medication Reconciliation Discharge Plan Discharge Items Patient Disposition: Home - Self-Care Reason For Visit: ACUTE APPENDICITIS Discharge Diagnosis: Acute appendicitis Condition on Discharge: Good Activity: Per Instructions section Non-emergency contact: Primary Care Provider and Surgeon Call non-emergency contact if: you have any medication questions, your pain is not controlled, your pain is worsening, your pain is concerning for you, you have a fever, your temperature is above 101, your wound has increased redness, your wound has increased drainage and your wound pain has increased Follow-up/Referrals: Evelia Perry PA-C [Physician Vacuum Pl[employer] Forming Machine Operator] - (2 weeks) PCPALISA [Physician] - Diet: Regular Addtl Attending Provider Instructions: Post-Surgical ~Discharge Instructions Activity Recommendations: - lifting limitation: (20 pounds for 2-3 weeks), - exercise/sex/sports limit: (nonstrenuous for 2 weeks), - driving or machine use limit: (none for 1 week or until pain free and no longer taking narcotic pain medication), - Shower/bathe limit: (may shower) Diet: - Resume previous diet SPECIAL CARE INSTRUCTIONS: - May shower. Let water run over area and pat dry. - Dermabond glue will fall off on its own, do not pick at it - Call the surgeon's office with any questions or concerns - - (ex. temperature higher than 101 degrees F, excessive bleeding or pain). MEDICATIONS: - Resume previous medications unless instructed otherwise by your surgeon. - May alternate extra strength Tylenol and Ibuprofen as needed for mild to moderate pain -650 mg Tylenol every 6 hours as needed - Ibuprofen 600 mg every 6 hours as needed (take with food) - Percocet 1 every 6 hours, as needed for moderate to severe pain - Recommend daily stool softener (Colace) while taking narcotic pain medication to prevent constipation and straining. Drink plenty of water daily. FOLLOW UP VISIT: - If not already scheduled, please call the office to schedule a two week follow-up appointment. Office number Pending Studies at Discharge: Yes (appendix pathology, will be reviewed at postop visit) Stand-Alone Forms: Monetate, Smoking Cessation Medications and DC Order Prescriptions: New oxycodone-acetaminophen 5-325 mg tablet 1 tab PO Q6H PRN (Reason: pain) Qty: 5 0RF Continued levocetirizine [Xyzal] 5 mg Tablet 5 mg PO PM Discharge Orders: Discharge Order (Routine); Ordered 07/08/22 Ordered By: Evelia Perry Admission Data Admit Date/Time: 07/07/22 15:46 Attending Provider: Noe Torre Admit Provider: Noe Torre Primary Care Provider: Jojo Ozuna Other Providers: Noe Torre
== END 2022-07-08 10:45 | disposition home or self-care (01) ==
LOC: ED 08:23 → 3N 13:36 → OR 13:36